=== PATIENT | female | born 1990 | race Two or more races ===

== ENCOUNTER 2022-12-24 13:11 | Emergency (ER) | payer MEDICAID ==
[~2022-12-24] VITALS: Ht 162.6 cm; Wt 98.0 kg
--- NOTE | 2022-12-24 13:18 | NUR ---
[id number] HOME C/O R SIDED PELVIC AREA PAIN THAT STARTED AT 1000
--- NOTE | 2022-12-24 14:06 | NUR ---
IV LINE STARTED BLOOD DRAWN AND SENT TO LAB.
--- NOTE | 2022-12-24 14:28 | NUR ---
DR COOPER AT BEDSIDE FOR EVAL.
[2022-12-24] MEDS ORDERED: MORPHINE SULFATE INJ 2 MG/ML DISP.SYRIN IV ONE ×2 (14:30→16:30)
[2022-12-24] MEDS ORDERED: IV NS 0.9% 1,000 ML BAG IV ONE (14:30)
[2022-12-24] MEDS ORDERED: ONDANSETRON HCL/PF 4 MG/2 ML VIAL IVP ONE (14:30)
[2022-12-24] MEDS ORDERED: MORPHINE SULFATE INJ 4 MG/ML DISP.SYRIN ONE ×2 (14:48→16:48)
[2022-12-24] MEDS ORDERED: ONDANSETRON HCL/PF 4 MG/2 ML VIAL ONE (14:48)
[2022-12-24 15:03] LABS: BASOPHILS # (AUTO) 0.1 K/uL (0.0-0.2); BASOPHILS % (AUTO) 0.4 % (0.0-2.0); EOSINOPHILS % (AUTO) 0.1 % (0.0-6.0); HEMATOCRIT 38 % (33-45); HEMOGLOBIN 12.4 g/dL (11.5-14.8); LYMPHOCYTES # (AUTO) 1.4 K/uL (0.8-4.8); LYMPHOCYTES % (AUTO) 9.6 % (20.0-44.0); MEAN CORPUSCULAR HGB CONC 33 g/dl (31.0-36.0); MEAN CORPUSCULAR VOLUME 85 fL (82-100); MONOCYTES # (AUTO) 0.5 K/uL (0.1-1.30); MONOCYTES % (AUTO) 3.6 % (2.0-12.0); NEUTROPHILS # (AUTO) 12.2 K/uL (1.8-8.9); NEUTROPHILS % (AUTO) 86.3 % (43.0-81.0); PLATELET COUNT (AUTO) 569 K/uL (150-450); RED BLOOD CELL COUNT(AUTO) 4.43 MIL/uL (4.0-5.2); WHITE BLOOD COUNT (AUTO) 14.1 K/uL (4.3-11.0)
[2022-12-24 15:13] LABS: CALCIUM, SERUM 9.2 mg/dL (8.5-10.1); CREATININE 0.7 mg/dL (0.6-1.3); POTASSIUM 3.7 mmol/L (3.5-5.1)
[2022-12-24 15:18] LABS: ALBUMIN 3.9 g/dL (3.4-5.0); BILIRUBIN,DIRECT 0.1 mg/dL (0.0-0.2); BILIRUBIN,TOTAL 0.3 mg/dL (0.2-1.0); TOTAL PROTEIN, SERUM 8.1 g/dL (6.4-8.2)
[2022-12-24 16:46] LABS: BILIRUBIN,URINE NEGATIVE (NEGATIVE); COLOR,URINE YELLOW (YELLOW); LEUKOCYTE ESTERASE ,URINE NEGATIVE (NEGATIVE); NITRITE, URINE NEGATIVE (NEGATIVE); PH,URINE 7.5 (5.0-8.0); PROTEIN,URINE 1+ mg/dl (NEGATIVE); UGLUCOSE NEGATIVE (NEGATIVE); UROBILINOGEN,URINE 0.2 EU/dL (0.2)
[2022-12-24] MEDS ORDERED: HYDR-4279 PO (17:10)
[2022-12-24 17:12] LABS: RBC,URINE NONE SEEN /HPF (0-2)
[2022-12-24 17:13] LABS: BACTERIA,URINE Few /HPF (None Seen); MUCUS,URINE Few /LPF (None Seen); WBC,URINE NONE SEEN /HPF (0-3)
[2022-12-24 18:19] VITALS: BP 126/80
--- NOTE | 2022-12-24 18:19 | NUR ---
Patient discharged to home in stable condition. Written and verbal after care instructions given. Patient verbalizes understanding of instruction.IV removed. Catheter intact and site benign. Pressure and 4x4 applied to site. No bleeding noted.
== END 2022-12-24 18:20 | disposition home or self-care (01) ==
LOC: ER 15:15
DX: N70.11 Chronic salpingitis (principal); R10.2 Pelvic and perineal pain; R11.2 Nausea with vomiting, unspecified; Z90.89 Acquired absence of other organs
CPT/HCPCS: 99285; 96374; 76856; 96361; 96375; 96376; 85025; 80048; 80076; 84703; 81001; 36415; 87210; 85730; 84702; 87491; 87591; J2270 ×2; J2405; J7030; A6403